=== PATIENT | male | born 1960 | race Caucasian/White ===

== ENCOUNTER → 2017-07-03 | Outpatient (CLI) | payer BC, SELFPAY ==
--- NOTE | 2017-07-06 08:28 | MRI ---
EXAM DESCRIPTION: Cervical Spine CLINICAL HISTORY: MUSCLE WEAKNESS. Neck pain with right upper extremity pain and numbness. COMPARISON: None Available. TECHNIQUE: MRI of the cervical spine is performed according to our usual protocol. FINDINGS: There is straightening of the normal cervical lordosis. 2 mm retrolisthesis of C4 on C5 and C5 on C6. Modic type I endplate changes at these levels posteriorly. Vertebral body stature is maintained. There is no acute fracture or destructive osseous lesion. Craniocervical junction and the cervical spinal cord are unremarkable. C2-3: Mild left facet hypertrophy and mild left uncovertebral spurring. Mild left neural foraminal stenosis. The spinal canal and right neural foramen are patent. C3-4: Disc desiccation with severe disc narrowing. Moderate uncovertebral spurring. Leftward eccentric 2 mm disc osteophyte complex with severe left and mild right neural foraminal stenosis. The spinal canal is patent. C4-5: Disc desiccation with severe disc narrowing. Mild facet hypertrophy and moderate uncovertebral spurring. 4 mm disc osteophyte complex with effacement of the ventral aspect of the thecal sac. Mild spinal canal stenosis with residual AP diameter of the thecal sac measuring about 8.5 mm. Severe right and moderate left neural foraminal stenosis. C5-6: Disc desiccation with severe disc narrowing. Mild facet hypertrophy and moderate uncovertebral spurring. 3.5 mm posterior disc osteophyte complex with mild spinal canal stenosis and moderate bilateral neural foraminal stenosis. Residual AP diameter of the thecal sac is 8.9 mm. C6-7: Disc desiccation with mild disc narrowing. Mild facet hypertrophy and uncovertebral spurring. 2 mm disc osteophyte complex. Mild bilateral neural foraminal stenosis. The spinal canal is patent. C7-T1: Disc desiccation. Mild facet hypertrophy. No spinal canal or neural foraminal stenosis. IMPRESSION: 1. Multilevel spondylitic and facet degenerative changes throughout the cervical spine as described above. The findings are most pronounced at C4-C5 where there is mild spinal canal stenosis, severe right neural foraminal stenosis, and moderate left neural foraminal stenosis. 2. At C5-C6, there is mild spinal canal stenosis and moderate bilateral neural foraminal stenosis. 3. Other findings as above. Electronically signed by: Ariel Okeefe MD 07/06/2017 8:27 AM CDT
== END | disposition home or self-care (01) ==
LOC: MRI 13:09
PROVIDERS: ATTEND Nurse Practitioner Family
DX: M62.81 Muscle weakness (generalized) (principal); M48.02 Spinal stenosis, cervical region

== ENCOUNTER → 2017-09-18 | Outpatient (CLI) | payer BC, SELFPAY | END | disposition home or self-care (01) | LOC: SL 20:29 | PROVIDERS: ATTEND Family Medicine | DX: G47.33 Obstructive sleep apnea (adult) (pediatric) (principal); G47.00 Insomnia, unspecified ==

== ENCOUNTER → 2018-01-18 | Outpatient (CLI) | payer BC | LOC: GMAJ 10:27 | PROVIDERS: ATTEND Family Medicine | DX: Z12.5 Encounter for screening for malignant neoplasm of prostate (principal) ==